=== PATIENT | female | born 1990 | race African-American/Black ===

== ENCOUNTER 2022-05-08 08:20 | Day surgery (SDC) | payer MEDICAID ==
[~2022-05-08] VITALS: Ht 170.2 cm; Wt 149.2 kg
[~2022-05-08 08:20] MED LIST: CALC-386 OR; MULT-683 OR; OMEP20TA PO; PREN-96 OR
[2022-05-08] MEDS ORDERED: BUPIVACAINE 0.25% INJ 50ML VIAL ONE (08:37)
[2022-05-08] MEDS ORDERED: EPINEPHrine HCL 1 MG/1 ML AMP ONE ×2 (08:37→11:09)
[2022-05-08] MEDS ORDERED: ceFAZolin 1GM/50ML 100 ML IV ONE (08:59)
[2022-05-08] MEDS ORDERED: SUCCINYLCHOLINE CHLORIDE 20 MG/ML 10ML VIAL IV ONE (09:28)
[2022-05-08] MEDS ORDERED: BACITRACIN TOP OINT 1 UD PKG TOP ONE (09:30)
[2022-05-08] MEDS ORDERED: fentaNYL CITRATE 100 MCG/2 ML VL ONE ×2 (09:31→11:03)
[2022-05-08] MEDS ORDERED: MIDAZOLAM HCL 2MG/2ML 2ml VIAL (1mg/ml) ONE (09:31)
[2022-05-08] MEDS ORDERED: PROPOFOL 10 MG/ML 20 ML IV ONE ×2 (09:40→12:12)
[2022-05-08] MEDS ORDERED: ONDANSETRON HCL 4 MG/2 ML VIAL ONE (09:40)
[2022-05-08] MEDS ORDERED: LIDOCAINE 2% (LOCAL ANESTH.) PF 5ml SDV ONE (09:40)
[2022-05-08] MEDS ORDERED: ROCURONIUM 10MG/ML 10ML VIAL IV ONE (09:55)
[2022-05-08] MEDS ORDERED: HYDROmorphone HCL 2 MG/ML VL/or syr IV PRN (11:45)
[2022-05-08] MEDS ORDERED: ONDANSETRON HCL 4 MG/2 ML VIAL IV PRN (11:45)
[2022-05-08] MEDS ORDERED: HYDR1TAB97 PO (12:12)
[2022-05-08] MEDS ORDERED: DOCU100C10 PO (12:14)
[2022-05-08] MEDS ORDERED: CEPH-510 PO (12:14)
[2022-05-08] MEDS ORDERED: ASPI-498 OR (12:14)
[2022-05-08] MEDS: HYDROmorphone HCL 2 MG/ML VL/or syr IV PRN ×2 (12:45→12:55)
[2022-05-08] MEDS ORDERED: MEPERIDINE HCL (25 MG/ML) 1ML VIAL ONE (12:58)
[2022-05-08] MEDS ORDERED: MEPERIDINE HCL (25 MG/ML) 1ML VIAL IV ONE (13:00)
[2022-05-08 13:35] VITALS: BP 141/82
== END 2022-05-08 13:55 | disposition home or self-care (01) ==
LOC: SUR 08:20
PROVIDERS: ATTEND Orthopaedic Surgery Sports Medicine
DX: M23.611 Other spontaneous disruption of anterior cruciate ligament of right knee (principal); S83.511A Sprain of anterior cruciate ligament of right knee, initial encounter; S83.211A Bucket-handle tear of medial meniscus, current injury, right knee, initial encounter; X58.XXXA Exposure to other specified factors, initial encounter; Y93.89 Activity, other specified; Y92.89 Other specified places as the place of occurrence of the external cause; Y99.9 Unspecified external cause status; Z20.822 Contact with and (suspected) exposure to COVID-19
CPT/HCPCS: 29882; 29888; 73560; 76000; C1713; C1768; J0171; J0330; J0690; J1170; J2001; J2175; J2250; J2405; J2704; J3010; J3490; U0003